=== PATIENT | male | born 1935 | race African-American/Black ===

== ENCOUNTER → 2019-05-03 | Outpatient (CLI) | payer MEDICARE ==
[~2019-05-03] MED LIST: AMINOPHYLLIN200 MG PO; AMOXICILLIN500 M2 PO; FLOMAX0.4 MG PO; NORCO 5-325 TA1 EACH PO
== END ==
LOC: RAD 13:19
DX: J18.1 Lobar pneumonia, unspecified organism (principal)

== ENCOUNTER → 2019-05-15 | Outpatient (CLI) | payer MEDICARE | LOC: RAD 11:26 | DX: J98.11 Atelectasis (principal); G40.A09 Absence epileptic syndrome, not intractable, without status epilepticus; J18.9 Pneumonia, unspecified organism; J43.9 Emphysema, unspecified; J98.6 Disorders of diaphragm; J90 Pleural effusion, not elsewhere classified ==

== ENCOUNTER → 2019-05-28 | Outpatient (CLI) | payer MEDICARE | END | disposition home or self-care (01) | LOC: MRI 11:00 | DX: G40.A09 Absence epileptic syndrome, not intractable, without status epilepticus (principal); M27.40 Unspecified cyst of jaw ==

== ENCOUNTER → 2019-06-09 | Outpatient (CLI) | payer MEDICARE | END | disposition home or self-care (01) | LOC: RAD 11:47 | DX: J84.10 Pulmonary fibrosis, unspecified (principal); J18.9 Pneumonia, unspecified organism; Q25.46 Tortuous aortic arch ==

== ENCOUNTER 2020-07-31 21:00 | Emergency (ER) | payer MEDICARE ==
[~2020-07-31] VITALS: Ht 175.2 cm; Wt 59.0 kg
[2020-07-31 22:02] LABS: BASO % 0.4 % (0.0-1.0); EOS # 0.2 10*3/uL (0.0-0.4); EOS % 2.2 % (1.0-4.0); LYMPH # 2.2 10*3/uL (1.3-4.4); LYMPH % 32.3 % (27.0-41.0); MEAN CELL VOLUME 92.6 fl (80.0-94.0); MEAN CORPUSCULAR HGB 28.9 pg (27.0-31.0); MEAN CORPUSCULAR HGB CONC 31.2 g/dl (33.0-37.0); MEAN PLATELET VOLUME 10.2 fl (9.6-12.3); MONO # 0.8 10*3/uL (0.1-1.0); MONO % 11.5 % (3.0-9.0); NEUT # 3.6 10*3/uL (2.3-7.9); NEUT % 52.9 % (47.0-73.0); PLATELET COUNT AUTOMATED 216 10*3/uL (130-400); RED BLOOD COUNT 3.67 10*6/uL (4.50-5.90); RED CELL DISTRI WIDTH 14.7 % (0-14.5); WHITE BLOOD COUNT 6.9 10*3/uL (4.8-10.8)
[2020-07-31 22:19] LABS: ALBUMIN 2.9 gm/dl (3.1-4.5); ALKALINE PHOSPHATASE 127 U/L (45-117); BUN 23 mg/dl (7-24); CHLORIDE 108 mmol/L (98-107); CREATININE 1.31 mg/dL (0.70-1.30); POTASSIUM 3.8 mmol/L (3.5-5.1); SGOT/AST 8 IU/L (3-35); SGPT/ALT 11 U/L (12-78); SODIUM 140 mmol/L (136-145)
[2020-07-31 23:22] LABS: BILIRUBIN Negative (Negative); BLOOD 3+ (Negative); CLARITY Cloudy (Clear); COLOR Yellow (Yellow); GLUCOSE Negative (Negative); KETONE Negative (Negative); LEUKO ESTERASE 3+ (Negative); NITRITE Negative (Negative); SPECIFIC GRAVITY 1.025 (1.001-1.030)
[2020-07-31 23:38] LABS: BACTERIA 2+; RBC 41-50 rbc/hpf (0-2); WBC 31-40 wbc/hpf (0-5)
[2020-07-31] MEDS ORDERED: SEPTDS PO (23:53)
== END 2020-08-01 00:20 | disposition home or self-care (01) ==
LOC: ED 21:00
PROVIDERS: Physician Assistant
DX: N39.0 Urinary tract infection, site not specified (principal); Z79.899 Other long term (current) drug therapy; Z95.818 Presence of other cardiac implants and grafts

== ENCOUNTER 2020-08-08 03:09 | Inpatient (IN) | payer MEDICARE ==
[2020-08-08] VITALS (11 sets, daily range): BP systolic 110–157; BP diastolic 54–94
[~2020-08-08] VITALS: Ht 175.2 cm; Wt 52.4 kg
[~2020-08-08 03:09] MED LIST changes: +SEPTDS PO
[2020-08-08 03:53] LABS: BASO % 0.4 % (0.0-1.0); EOS # 0.1 10*3/uL (0.0-0.4); EOS % 1.2 % (1.0-4.0); HEMATOCRIT 36.8 % (42.0-52.0); LYMPH # 1.8 10*3/uL (1.3-4.4); LYMPH % 23.5 % (27.0-41.0); MEAN CELL VOLUME 92.7 fl (80.0-94.0); MEAN CORPUSCULAR HGB 29.2 pg (27.0-31.0); MEAN CORPUSCULAR HGB CONC 31.5 g/dl (33.0-37.0); MEAN PLATELET VOLUME 10.5 fl (9.6-12.3); MONO # 0.6 10*3/uL (0.1-1.0); MONO % 7.8 % (3.0-9.0); PLATELET COUNT AUTOMATED 228 10*3/uL (130-400); RED BLOOD COUNT 3.97 10*6/uL (4.50-5.90); WHITE BLOOD COUNT 7.5 10*3/uL (4.8-10.8)
[2020-08-08 04:10] LABS: ALBUMIN 3.1 gm/dl (3.1-4.5); ALKALINE PHOSPHATASE 119 U/L (45-117); BUN 21 mg/dl (7-24); CHLORIDE 106 mmol/L (98-107); CREATININE 1.53 mg/dL (0.70-1.30); LIPASE 47 U/L (73-393); POTASSIUM 4.7 mmol/L (3.5-5.1); SGOT/AST 25 IU/L (3-35); SGPT/ALT 23 U/L (12-78); SODIUM 137 mmol/L (136-145); TOTAL PROTEIN 8.8 gm/dL (6.4-8.2)
[2020-08-08 04:13] LABS: TROPONIN I < 0.015 ng/ml (<0.045)
[2020-08-08] MEDS ORDERED: MIDODRINE HCL5 M1 PO (04:28)
[2020-08-08 12:37] LABS: BILIRUBIN Negative (Negative); BLOOD Negative (Negative); CLARITY Clear (Clear); COLOR Yellow (Yellow); GLUCOSE Negative (Negative); KETONE Negative (Negative); LEUKO ESTERASE 2+ (Negative); NITRITE Negative (Negative)
[2020-08-08 12:52] LABS: BACTERIA 2+; CALCIUM OXALATE CRYSTALS 3+; WBC 21-30 wbc/hpf (0-5)
[2020-08-09] VITALS: BP 128/53
[2020-08-09 07:05] LABS: BASO % 0.3 % (0.0-1.0); EOS # 0.2 10*3/uL (0.0-0.4); HEMATOCRIT 36.2 % (42.0-52.0); LYMPH # 1.7 10*3/uL (1.3-4.4); LYMPH % 23.4 % (27.0-41.0); MEAN CELL VOLUME 92.1 fl (80.0-94.0); MEAN CORPUSCULAR HGB 28.8 pg (27.0-31.0); MEAN CORPUSCULAR HGB CONC 31.2 g/dl (33.0-37.0); MEAN PLATELET VOLUME 10.2 fl (9.6-12.3); MONO # 0.8 10*3/uL (0.1-1.0); MONO % 10.6 % (3.0-9.0); NEUT # 4.4 10*3/uL (2.3-7.9); NEUT % 62.4 % (47.0-73.0); PLATELET COUNT AUTOMATED 240 10*3/uL (130-400); RED BLOOD COUNT 3.93 10*6/uL (4.50-5.90); WHITE BLOOD COUNT 7.1 10*3/uL (4.8-10.8)
[2020-08-09 07:18] LABS: ACT PARTIAL THROMBO TIME 32.2 SECONDS (20.0-32.1)
[2020-08-09 07:35] LABS: ALBUMIN 2.9 gm/dl (3.1-4.5); ALKALINE PHOSPHATASE 107 U/L (45-117); BUN 17 mg/dl (7-24); CHLORIDE 104 mmol/L (98-107); CHOLESTEROL 178 mg/dL (<200); CREATININE 1.27 mg/dL (0.70-1.30); FREE T4 1.01 ng/dl (0.76-1.46); LDL CHOLESTEROL 104 mg/dL (9-159); POTASSIUM 4.7 mmol/L (3.5-5.1); SGOT/AST 17 IU/L (3-35); SGPT/ALT 18 U/L (12-78); SODIUM 136 mmol/L (136-145); TOTAL PROTEIN 8.4 gm/dL (6.4-8.2); TRIGLYCERIDES 44 mg/dl (<150)
[2020-08-09 07:40] LABS: THYROID STIM HORMONE (HS) 0.766 uIU/ml (0.358-4.75)
[2020-08-09 08:00] VITALS: BP 132/56
[2020-08-09 12:00] VITALS: BP 132/53
[2020-08-09] MEDS ORDERED: VITAMIN D3125 MC1 PO (12:24)
[2020-08-09] MEDS ORDERED: NATURE'S BLEND F1 MG PO (12:24)
[2020-08-09 16:00] VITALS: BP 135/53
[2020-08-09 18:09] LABS: ALBUMIN 2.8 gm/dl (3.1-4.5); ALKALINE PHOSPHATASE 107 U/L (45-117); BUN 20 mg/dl (7-24); CHLORIDE 104 mmol/L (98-107); CREATININE 1.27 mg/dL (0.70-1.30); POTASSIUM 4.3 mmol/L (3.5-5.1); SGOT/AST 16 IU/L (3-35); SGPT/ALT 17 U/L (12-78); SODIUM 138 mmol/L (136-145); TOTAL PROTEIN 8.2 gm/dL (6.4-8.2)
[2020-08-09 20:00] VITALS: BP 109/54
[2020-08-10] VITALS: BP 110/52; BP 112/42
[2020-08-10 08:00] VITALS: BP 138/66
[2020-08-10 12:00] VITALS: BP 131/53
[2020-08-10 16:00] VITALS: BP 132/63
[2020-08-10 20:00] VITALS: BP 133/60
[2020-08-11] VITALS: BP 131/51
[2020-08-11 08:00] VITALS: BP 142/68
== END 2020-08-11 10:06 | disposition home health service (06) | DRG 199 ==
LOC: ED 03:09 → 4E 07:58 → EDHOLD 07:58 → 4E 17:12
PROVIDERS: Emergency Medicine; Internal Medicine; ADMIT Family Medicine; ATTEND Family Medicine
PROC: 0W9930Z Drainage of Right Pleural Cavity with Drainage Device, Percutaneous Approach (ICD-10-PCS; principal; 2020-08-08)
PROC: 0WP9X0Z Removal of Drainage Device from Right Pleural Cavity, External Approach (ICD-10-PCS; 2020-08-11)
DX: J93.83 Other pneumothorax (principal); N17.0 Acute kidney failure with tubular necrosis; E87.2 Acidosis; N39.0 Urinary tract infection, site not specified; N18.32 Chronic kidney disease, stage 3b; R31.9 Hematuria, unspecified; I25.10 Atherosclerotic heart disease of native coronary artery without angina pectoris; Z83.3 Family history of diabetes mellitus; D64.9 Anemia, unspecified; R70.0 Elevated erythrocyte sedimentation rate; R73.9 Hyperglycemia, unspecified; R53.81 Other malaise; R26.2 Difficulty in walking, not elsewhere classified; Z83.6 Family history of other diseases of the respiratory system; Z95.5 Presence of coronary angioplasty implant and graft; Z87.891 Personal history of nicotine dependence

== ENCOUNTER 2020-09-08 07:07 | Emergency (ER) | payer MEDICARE ==
[~2020-09-08] VITALS: Ht 175.2 cm; Wt 55.9 kg
[~2020-09-08 07:07] MED LIST changes: +MIDODRINE HCL5 M1 PO; +NATURE'S BLEND F1 MG PO; +VITAMIN D3125 MC1 PO
[2020-09-08] MEDS ORDERED: NEURONTIN100 MG PO (08:07)
== END 2020-09-08 08:14 | disposition home or self-care (01) ==
LOC: ED 07:07
DX: G62.9 Polyneuropathy, unspecified (principal); I25.2 Old myocardial infarction; Z79.899 Other long term (current) drug therapy; Z87.891 Personal history of nicotine dependence

== ENCOUNTER 2020-11-26 07:43 | Emergency (ER) | payer MEDICARE ==
[~2020-11-26] VITALS: Ht 175.2 cm; Wt 81.6 kg
[~2020-11-26 07:43] MED LIST changes: +NEURONTIN100 MG PO
[2020-11-26] MEDS ORDERED: NEURONTIN100 MG PO (08:16)
== END 2020-11-26 13:33 | disposition home or self-care (01) ==
LOC: ED 07:43
DX: G62.9 Polyneuropathy, unspecified (principal); B35.1 Tinea unguium; M79.671 Pain in right foot; M79.672 Pain in left foot; I25.10 Atherosclerotic heart disease of native coronary artery without angina pectoris; I25.2 Old myocardial infarction; N18.30 Chronic kidney disease, stage 3 unspecified; Z79.899 Other long term (current) drug therapy; Z95.5 Presence of coronary angioplasty implant and graft; Z87.891 Personal history of nicotine dependence